=== PATIENT | female | born 1980 | race Caucasian/White ===

== ENCOUNTER 2016-04-17 08:00 | Outpatient (CLI) | payer OTHER ==
[~2016-04-17 08:00] MED LIST: IRON325 MG PO; OXYCODONE/ACETA1 TA1 PO; PRENATAL1 TAB; TORADOL IV
== END 2016-04-17 23:00 ==
LOC: LAB SRH 08:00
DX: Z34.82 Encounter for supervision of other normal pregnancy, second trimester (principal)
CPT/HCPCS: 90039; 90074; 91162; 91163

== ENCOUNTER 2016-06-30 05:32 | Inpatient (IN) | payer OTHER ==
--- NOTE | 2016-06-26 11:53 | HISTORY AND PHYSICAL ---
ADMITTED: 06/30/2016 CHIEF COMPLAINT: 3, para 2 at term. Two previous sections for repeat section. Multiparity desiring voluntary sterilization in the form of bilateral salpingectomy if possible versus the clamps if extremely vascular mesosalpinx. MEDICAL/SURGICAL HISTORY: Menstrual history: Normal. Obstetric History: Normal. No significant contraception, history. Deliveries 2012, 2014 at term, section, 7 pounds 6 ounces, second was 7 pounds 4 ounces. Surgical history: Paratubal cysts, omental masses 05/03/2012, section x2, wisdom teeth. Medical history: Negative. MEDICATIONS: 1. None. ALLERGIES: 1. AUGMENTIN. SOCIAL HISTORY: Previous smoker, not currently. FAMILY HISTORY: Not significant. Mother with hypertension, diabetes in maternal grandmother, hyperlipidemia in mother, heart disease in paternal grandfather. REVIEW OF SYSTEMS: Alert and oriented x3. Genitourinary: Purpose of surgery. Cardiovascular: No shortness of breath or chest pain. Gastrointestinal: Normal daily bowel movements, constipation currently. PHYSICAL EXAMINATION: VITAL SIGNS: Weight is 84, height 5 feet 5 inches, 65 inches. Blood pressure 128 /62, pulse and temperature normal. SKIN/HAIR/INTEGUMENT: Normal. HEENT: Grossly intact. BREASTS: Exam not done. LUNGS: Clear. HEART: Regular rate and rhythm. ABDOMEN: Term, 37 cm fundal height. EXTREMITIES: Normal. No clubbing, cyanosis, erythema or edema. PELVIC: Exam not done. RECTAL: Exam not done. LAB/IMAGING: Laboratory tests pending. IMPRESSION: 1. Term to be 39 weeks. PLAN: Elective section. Informed consent, risks and benefits given. The patient understands and accepts.
[2016-06-30] VITALS (9 sets, daily range): BP systolic 97–139; BP diastolic 58–75
[~2016-06-30] VITALS: Ht 165.1 cm; Wt 83.0 kg
[2016-06-30] MEDS ORDERED: PRENATAL1 TAB PO (07:09)
--- NOTE | 2016-06-30 10:27 | OPERATIVE REPORT ---
DATE OF SURGERY: 06/30/2016 SURGEON: Young Orellana MD PREOPERATIVE DIAGNOSES: 1. Term , multiparous patient, multiparity, desiring voluntary sterilization, previous section x2, for repeat. POSTOPERATIVE DIAGNOSIS: 1. Term , multiparous patient, multiparity, desiring voluntary sterilization, previous section x2, for repeat, delivered PROCEDURE PERFORMED: 1. Repeat low segment transverse uterine section with scar revision and normal delivery, fimbriectomy as part of a bilateral salpingectomy for tubal ligation. SURGICAL FINDINGS: Normal procedure. 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 COMPLICATIONS: None. CONDITION: Good. ESTIMATED BLOOD LOSS: 600 mL FLUIDS: See anesthesia. DRAINS: See anesthesia. IMPLANTS/GRAFTS: No blood, no grafts, no implants. SURGICAL TECHNIQUE: The patient was prepped and draped in the usual fashion and effective spinal anesthesia was obtained. A time-out was performed. Ancef 2 g was given, scar revision was performed 2 cm superior and inferior to the scar and was used to go down through the fascia and dissect laterally and parietal peritoneum was entered bluntly. Stretch was performed, the Aric was placed. The bladder blade was placed. The bladder flap was established. The lower uterine segment was thin 2-3 mm, it was dissected with Bovie and entered the sac. Hemostat was used to enter the small opening that I performed. A finger was inserted. Bandage scissors were used to carry the incision laterally to avoid major bleeders. The baby was delivered in an ROT position, suctioned on delivery of the head. Cord around the neck x1. Shoulders were delivered without excess pressure or stress. was active and handed to the pediatricians after doubly clamping the cord and cord blood was collected. Pitocin was given IV. The uterus was massaged internally, placenta was removed. Bleeders were clamped with rings. The uterus was massaged. The membranes were removed in total. The 0 poly was used in a running locking fashion from angle to angle and return imbricating suture of [id number] was required for hemostasis. The fimbria were addressed at this point, lifted up with a Hailee, clamped approximately 7-8 cm in length and 2-0 chromic was used to tie. Bovie was used to cauterize the end of the tube while cutting across the tube. Good hemostasis. The Aric ring was removed, gutters were inspected. The fascia was reapproximated with a second suture with good reapproximation and hemostasis was obtained and irrigation of, the fascia was obtained. The subcutaneous was reapproximated with the first suture of 3-0 poly. Good reapproximation, diogenes were applied. Sponge, needle, tape and instrument count was correct x2. The patient tolerated the procedure well and went to the recovery room in good condition.
[2016-07-01] VITALS: BP 108/65
[2016-07-01 04:00] VITALS: BP 106/57
[2016-07-01 07:20] VITALS: BP 108/68
--- NOTE | 2016-07-01 15:34 | Provider's Discharge Care Plan ---
Problem, Goal, Plan Problem List 1. Post-op pain Goals: Improve disease control Instructions: Follow up as needed
--- NOTE | 2016-07-01 15:34 | Provider's Discharge Care Plan ---
Problem, Goal, Plan Problem List 1. Post-op pain Goals: Improve disease control Instructions: Follow up as needed
[2016-07-01] MEDS ORDERED: PERCOCET1 TA1 PO (15:35)
[2016-07-01 16:00] VITALS: BP 122/78
--- NOTE | 2016-07-01 16:14 | DISCHARGE SUMMARY ---
ADMIT DATE: 06/30/2016 DISCHARGE DATE: 07/01/2016 ADMITTING DIAGNOSES: 1. Previous section x2, at term, for repeat. 2. Wants tubal ligation. DISCHARGE DIAGNOSES: 1. Previous section x2, at term, for repeat. 2. Wants tubal ligation. 3. Delivered. PROCEDURES PERFORMED: 1. Repeat low transverse uterine section 2. Scar revision 3. Tubal ligation by fimbriectomy; salpinx to pathology HOSPITAL COURSE: The patient was admitted for routine section. See postoperative note. The patient did extremely well and was desiring discharge home on the first postoperative day. She has normal resumption of GI and function. She is afebrile, taking fluids well, and is desiring discharge home. DISCHARGE INSTRUCTIONS/MEDICATIONS: She is discharged home with 30 Percocet, 1 p.o. q.4 hours p.r.n. pain. Followup appointment in 1 week. Warnings and precautions given.
== END 2016-07-01 16:35 | disposition home or self-care (01) | DRG 766 ==
LOC: OB SRH 05:32 → U SRH 08:00 → OB SRH 13:31
PROVIDERS: ADMIT Obstetrics & Gynecology
PROC: 0UB70ZZ Excision of Bilateral Fallopian Tubes, Open Approach (ICD-10-PCS; principal; 2016-06-30 08:00)
PROC: 10D00Z1 Extraction of Products of Conception, Low, Open Approach (ICD-10-PCS; principal; 2016-06-30 08:00)
DX: O34.211 Maternal care for low transverse scar from previous cesarean delivery (principal); Z37.0 Single live birth; Z30.2 Encounter for sterilization; Z3A.39 39 weeks gestation of pregnancy
CPT/HCPCS: 40010; 50002; 60001; 83411; 83426; 83432; 83526; 84038; 84043; 85372; 90001; 90074; 90155; 91004; 91162; 91163; 95059